=== PATIENT | male | born 1955 | race Caucasian/White ===

== ENCOUNTER 2020-07-16 10:29 | Outpatient (REF) | payer OTHER, SELFPAY | END 2020-07-16 10:30 | disposition home or self-care (01) | LOC: HO.LAB 10:29 | PROVIDERS: PCP Internal Medicine Medical Oncology; Visit Provider Internal Medicine | DX: Z20.828 Contact with and (suspected) exposure to other viral communicable diseases (principal) | CPT/HCPCS: C9803; U0003 ==

== ENCOUNTER 2023-09-05 10:09 | Emergency (ER) | payer MEDICARE, SELFPAY ==
--- NOTE | ~2023-09-05 | CT_ITS ---
EXAMINATION: CT HEAD WITHOUT CONTRAST CT FACE WITHOUT CONTRAST CT CERVICAL SPINE WITHOUT CONTRAST CLINICAL INFORMATION: Fall while skiing. Left-sided facial swelling. COMPARISON: No relevant prior imaging. TECHNIQUE: This CT examination was performed using dose optimization techniques as appropriate, including one or more of the following: Automated exposure control, iterative reconstruction, and adjustment of technique factors (mA and/or kVp) according to patient size (this includes techniques or standardized protocols for targeted exams where dose is matched to indication/reason for exam). Fleischner Society criteria for the followup of incidental pulmonary nodules was implemented if appropriate. DLP: 1306 mGy-cm. FINDINGS: Head: There is no acute intracranial hemorrhage or abnormal extra-axial collection. No intracranial mass effect or midline shift. Lateral and third ventricles are normal. No hydrocephalus. Kelly-white matter differentiation is preserved and there is no evidence of acute territorial infarct. The calvarium and skull base are intact. There is partial opacification of the mastoid air cells. Face: There is nonspecific stranding within the subcutaneous soft tissues of the left face as well as the left retromaxillary fat. No clear evidence of acute fracture. Nasal bones, zygomatic arches, and pterygoid processes are intact. No acute mandibular fracture. There is moderate to severe paranasal sinus mucosal thickening with associated sclerotic mucoperiosteal changes within the adjoining bone indicating the presence of chronic sinusitis. Globes and extraocular muscles are symmetric. No abnormal retrobulbar inflammation or hematoma. The lamina papyracea and orbital floors are intact. Orbital apices are unremarkable. No evidence of acute orbital blowout fracture. Cervical spine: There is slight anterolisthesis of C7 on T1 and T1-T2 that appears to be related to facet degenerative changes at these 2 levels. Vertebral heights are preserved. No evidence of acute fracture. No abnormal prevertebral soft tissue swelling. There is a central disc herniation at C3-C4 causing at least mild canal stenosis. Otherwise no canal compromise. There are a few subpleural blebs and pleural parenchymal scarring visualized at the apices of both lungs. Visualized soft tissues of the neck are unremarkable. CT/CT cervical spine wo IV con IMPRESSION: Head: No evidence of acute territorial infarct or hemorrhage. Face: There is nonspecific stranding within the subcutaneous soft tissues of the left face and left retromaxillary fat. This finding may represent a contusion in the setting of recent trauma. No acute facial fracture. Cervical Spine: No evidence of acute fracture and no posttraumatic spinal subluxation. There is a central disc herniation at C3-C4 causing at least mild canal stenosis. If there are clinical symptoms of compressive myelopathy then a dedicated cervical spine MRI can be obtained for better anatomic characterization of the cord and canal.
[2023-09-05 10:16] VITALS: BP 136/95; PULSE 69; RESP 18; TEMP 36.4; O2SAT 99; BMI 21.8
--- NOTE | 2023-09-05 11:07 | PC.NURSE ---
alert nd oriented, ambulatory without assist. Was skiing 2 days ago and fell and hit left side of head. Pt was wearing a helmet. Pt continued skiing that day without issue but the next day developed a headache and stiffness and pain in his jaw. Relief with motrin and tylenol. Pt denies any vision changes, no blurry or double vision. Denies nausea and vomiting. advised to come in by PCP for CT scan
--- NOTE | 2023-09-05 11:48 | ED.GENADULT ---
HPI - General Adult General Chief complaint: Head Injury Stated complaint: Head inj Time Seen by Provider: 09/05/23 11:47 Source: patient Mode of arrival: ambulatory Limitations: no limitations History of Present Illness HPI narrative: Patient is a 68-year-old male presenting to the emergency department with complaint of left-sided headache and left sided facial swelling after falling while skiing on Tuesday, 09/03. Patient states he was helmeted, skiing on an intermediate trail at a moderate rate of speed when he lost his balance, falling onto his left side. He reports hearing a loud crunch during the fall. States he did not notice any damage to the helmet, denies loss of consciousness, and states he was able to get up and ski down the rest of the trail. Skied 4-5 more runs that day and denies any complaints on Tuesday night. Tuesday he skied a few more runs in the morning, then in the afternoon developed a gradual onset headache to left temporal area. Has been taking Tylenol and ibuprofen every 4 hours since, and describes his headache as excruciating if he does not take these meds at exactly the 4 hour fadi. Also complains of left-sided jaw pain but states he is able to fully open and close his jaw. Complains of numbness to the roof of his mouth only on left side. Denies any blurred vision, double vision or other visual changes. Denies any neck or back pain. Denies any other physical complaints. Denies any nausea or vomiting. He is not anticoagulated. complaint: Head injury Onset (ago): day(s) Location: head, face and mouth Severity: severe Quality: aching Pain Consistency: constant Relieving factors: medication Exacerbating factors: none Treatments prior to arrival: NSAID Related Data Allergies Allergy/AdvReac Type Severity Reaction Status Date / Time No Known Allergies Allergy Verified 09/05/23 10:19 Review of Systems Review of Systems: As per HPI. Yes all other systems are reviewed and are negative Constitutional: Constitutional: Reports as per HPI [facility] Social History Social History Alcohol intake: current Alcohol intake frequency: a few times a month Smoked in Last 30 Days: No Use of substances other than those prescribed or required for medical reasons: No Advance Directives: No Advance Directives Information Provided: No Physical Exam ED Vital Signs: Vital Signs - 24 hr 09/05/23 10:16 Temperature 97.6 F Pulse Rate 69 Respiratory Rate 18 Blood Pressure 136/95 H Pulse Oximetry 99 Oxygen Delivery Method Room Air BMI result Body Mass Index 21.8 Vital signs have been reviewed and appear to be correct. Blood pressure normal. Heart rate normal. Respiratory rate normal. Temperature normal. Oxygen saturation normal. Const General: cooperative, healthy appearing and no acute distress Orientation/consciousness: oriented to person, oriented to place, oriented to time and patient oriented x3 Limitations: no limitations HENCT Head: Yes normocephalic, Yes atraumatic, No Dillon's sign, No raccoon eyes and No periorbital ecchymosis Head images: 1. mild swelling 2. tenderness Ears: external ears normal, TM's normal bilaterally and EAC's normal General nose exam: Normal external nose present Face and sinus: Yes face symmetric Mouth: Normal oral and palatal mucosa present, lip normal, tongue normal, oropharynx normal, moist mucous membranes, No abnormal TMJ, no trismus and No restricted motion Teeth and gingiva: dentition normal Throat: Yes uvula midline and No uvular edema Eyes Pupils: Equal, round and reactive pupils present Neck Neck: Yes normal visual inspection and Yes supple Resp Effort & Inspection: normal respiratory effort and able to speak in complete sentences Auscultation: clear to auscultation bilaterally Cardio Rate: regular rate Rhythm: regular rhythm Heart sounds: S1 normal heart sound present and S2 normal heart sound present GI Palpation (GI): Soft to palpation and nontender Auscultation: normoactive bowel sounds General: Yes no CVA tenderness Back/Spine/Pelvis Back: no CVA tenderness Cervical Spine: normal cervical lordosis, cervical ROM normal, No Cervical spine tenderness and No step off deformity Thoracic/Lumbar Spine: thoracic and lumbar spine normal to inspection, No thoracic spinal tenderness and No lumbar spinal tenderness Skin General skin exam: elasticity normal and turgor normal Neuro General: oriented to person, oriented to place, oriented to time, patient oriented x3, gait normal, tone normal, moves all extremities, Normal light touch and pain sensation, no focal motor deficits, CN's II-XI intact bilaterally and deep tendon reflexes 2+ bilaterally Cranial nerves: Yes Equal, round and reactive pupils present Cognition (Neuro): normal cognition Motor exam (neuro): 5/5 motor strength present throughout Sensory Exam: Normal double simultaneous stimulation for sensation Extrem General: Yes full ROM, Yes no pedal edema and Yes no calf tenderness Psych Mental Status: mental status grossly normal Affect: normal affect Thought process: Normal thought process present Medical Decision Making Medical Decision Making [facility] Narrative: Patient is a 68-year-old male presenting to the emergency department with complaint of left-sided headache and left sided facial swelling after falling while skiing on Tuesday, 09/03. On exam patient is awake, A+Ox3, VS WNL, afebrile, normal neurological exam without focal deficits, physical exam findings as above. Given reported symptoms and physical exam findings, initial differential includes ICH/SAH, skull fracture, jaw contusion vs fracture Plan: CT head, c-spine, facial bones CT notable for nonspecific stranding within the subcutaneous tissues of left face and left retro maxillary fat which is likely contusion due to recent fall, no evidence of ICH, no cervical spinal fractures. My interpretation is in agreement with the radiologist's interpretation. Results discussed with patient and all questions answered. Return precautions discussed at bedside. Advised patient to continue alternating Tylenol and ibuprofen as well as apply ice to face intermittently. Instructed patient follow-up with PCP. Patient verbalized understanding of and agreement with plan. Differential Diagnosis Differential Diagnoses: The differential diagnosis associated with the presentation includes As per MDM. Admission/Observation Consideration of admission/observation: Escalation of care including admission/observation considered Independent Interpretation I performed an independent interpretation of an: CT Scan Interpretation: CT notable for nonspecific stranding within the subcutaneous tissues of left face and left retro maxillary fat which is likely contusion due to recent fall, no evidence of ICH, no cervical spinal fractures. Radiology Impression Discussion of test interpretation with radiology: I have reviewed the radiologist's reading. Radiologist Impression: CT/CT head/brain wo IV con IMPRESSION: Head: No evidence of acute territorial infarct or hemorrhage. Face: There is nonspecific stranding within the subcutaneous soft tissues of the left face and left retromaxillary fat. This finding may represent a contusion in the setting of recent trauma. No acute facial fracture. Cervical Spine: No evidence of acute fracture and no posttraumatic spinal subluxation. There is a central disc herniation at C3-C4 causing at least mild canal stenosis. If there are clinical symptoms of compressive myelopathy then a dedicated cervical spine MRI can be obtained for better anatomic characterization of the cord and canal. External Record Review External record reviewed: Inpatient record, Office record and Outpatient record Discharge Plan Discharge Clinical Impression: Facial contusion Qualifiers: Encounter type: initial encounter Qualified Code(s): S00.83XA - Contusion of other part of head, initial encounter Patient Disposition: Home, Self-Care Instructions: Facial Contusion (ED) Additional Instructions: You have been evaluated in the emergency department today for head injury. Your CT scans did not show signs of a bleed or fractures in your head, face, or neck. We recommend you take 600 mg ibuprofen every 6 hours or Tylenol 650 mg every 6 hours as needed for pain. If needed, you can alternate these medications so that you take 1 medication every 3 hours. For instance, at noon take ibuprofen, then at 3:00 p.m. take Tylenol, then at 6:00 p.m. take ibuprofen. Please schedule an appointment with for follow-up with your primary care provider as soon as possible. Return to the emergency department if you experience worsening or uncontrolled pain, vision changes, recurrent vomiting, difficulty with normal activities, abnormal behavior, difficulty walking, numbness, weakness, or any other concerning symptoms.
== END 2023-09-05 13:42 | disposition home or self-care (01) ==
PROVIDERS: Emergency Provider Emergency Medicine; PCP Internal Medicine Medical Oncology
DX: S00.83XA Contusion of other part of head, initial encounter (principal); R51.9 Headache, unspecified; R68.84 Jaw pain; M54.2 Cervicalgia; W00.0XXA Fall on same level due to ice and snow, initial encounter; Y93.23 Activity, snow (alpine) (downhill) skiing, snowboarding, sledding, tobogganing and snow tubing; Y92.828 Other wilderness area as the place of occurrence of the external cause; Y99.8 Other external cause status
CPT/HCPCS: 70450; 70486; 72125; 99284

== ENCOUNTER 2023-09-26 09:12 | Outpatient (REF) | payer MEDICARE, SELFPAY ==
--- NOTE | ~2023-09-26 | XR_ITS ---
EXAMINATION: XR CHEST CLINICAL INFORMATION: Atypical pneumonia COMPARISON: None available. TECHNIQUE: 2 views of the chest were obtained. FINDINGS: The lungs are hyperinflated but clear of acute pneumonic process. There are small 6 mm pulmonary nodule right midlung, stable. Heart size and pulmonary vascularity is normal. No gross bony abnormality seen. XR/XR chest 2V IMPRESSION: 1. Mildly emphysematous lungs without acute process. There is a 6 mm nodule right midlung. Recommend 6-[address] follow-up followed by 18-24 months.
== END 2023-09-26 09:13 | disposition home or self-care (01) ==
LOC: HO.XRAY 09:12
PROVIDERS: PCP Internal Medicine Medical Oncology; Visit Provider Internal Medicine Medical Oncology
DX: J18.9 Pneumonia, unspecified organism (principal)
CPT/HCPCS: 71046